=== PATIENT | female | born 1990 | race American Indian/Alaskan Native ===

== ENCOUNTER 2019-04-10 11:06 | Emergency (ER) | payer MEDICAID ==
[2019-04-10 11:33] VITALS: BP 134/66
--- NOTE | 2019-04-10 11:37 | Emergency Department Report ---
ED ENT HPI - General Chief complaint: Earache Stated complaint: LFT EAR/THROAT PAIN Time Seen by Provider: 04/10/19 11:31 Source: patient Mode of arrival: Ambulatory Limitations: No Limitations - History of Present Illness Initial comments: This is a 29-year-old female nontoxic well in appearance with no signs of distress presents to the ED with complaint of left earache and sore throat x1 week. Was seen by a provider and was diagnosed with otitis media but has not been prescribed antibiotics. Patient denies any hearing loss. Denies any mastoid tenderness. Denies any fever, chills, headache, nausea, vomiting, chest pain or SOB. Denies any other complaints. Denies any allergies. MD complaint: sore throat, ear pain -: week(s) (1) Location: L ear, throat Severity: mild Severity scale (0 -10): 8 Quality: aching Consistency: constant Improves with: none Worsens with: swallowing Associated Symptoms: pain with swallowing, sore throat. denies: fever, cough, gum swelling, toothache, tinnitus, hearing loss, discharge from ear, rhinorrhea - Related Data Previous Rx's Medication Instructions Recorded Last Taken Type Amoxicillin [Amoxicillin TAB] 875 mg PO BID #20 tablet 04/10/19 Unknown Rx Ibuprofen [Motrin] 600 mg PO Q8H PRN #20 tablet 04/10/19 Unknown Rx Allergies Allergy/AdvReac Type Severity Reaction Status Date / Time No Known Allergies Allergy Unverified 04/10/19 11:27 ED Dental HPI - General Chief complaint: Earache Stated complaint: LFT EAR/THROAT PAIN Time Seen by Provider: 04/10/19 11:31 Source: patient Mode of arrival: Ambulatory Limitations: No Limitations - Related Data Previous Rx's Medication Instructions Recorded Last Taken Type Amoxicillin [Amoxicillin TAB] 875 mg PO BID #20 tablet 04/10/19 Unknown Rx Ibuprofen [Motrin] 600 mg PO Q8H PRN #20 tablet 04/10/19 Unknown Rx Allergies Allergy/AdvReac Type Severity Reaction Status Date / Time No Known Allergies Allergy Unverified 04/10/19 11:27 ED Review of Systems ROS: Stated complaint: LFT EAR/THROAT PAIN Other details as noted in HPI Constitutional: denies: chills, fever Eyes: denies: eye pain, eye discharge, vision change ENT: ear pain, throat pain Respiratory: denies: cough, shortness of breath, wheezing Cardiovascular: denies: chest pain, palpitations Endocrine: no symptoms reported Gastrointestinal: denies: abdominal pain, nausea, diarrhea Genitourinary: denies: urgency, dysuria, discharge Musculoskeletal: denies: back pain, joint swelling, arthralgia Skin: denies: rash, lesions Neurological: denies: headache, weakness, paresthesias Psychiatric: denies: anxiety, depression Hematological/Lymphatic: denies: easy bleeding, easy bruising ED Past Medical Hx - Past Medical History Previous Medical History?: No - Surgical History Past Surgical History?: No - Medications Home Medications: Home Medications Medication Instructions Recorded Confirmed Last Taken Type Amoxicillin [Amoxicillin TAB] 875 mg PO BID #20 tablet 04/10/19 Unknown Rx Ibuprofen [Motrin] 600 mg PO Q8H PRN #20 tablet 04/10/19 Unknown Rx ED Physical Exam - General Limitations: No Limitations General appearance: alert, in no apparent distress - Head Head exam: Present: atraumatic, normocephalic - Expanded ENT Exam Expanded Ear exam: Present: normal external inspection TM/Canal exam: Erythema: Left TM, Bulging: Left TM Mouth exam: Present: normal external inspection. Absent: drooling, trismus, muffled voice Teeth exam: Present: normal inspection Throat exam: Positive: tonsillar erythema, other (uvula midline). Negative: tonsillomegaly, tonsillar exudate, R peritonsillar mass, L peritonsillar mass - Neck Neck exam: Present: normal inspection, full ROM. Absent: tenderness, meningismus, lymphadenopathy - Extremities Exam Extremities exam: Present: normal inspection, full ROM - Back Exam Back exam: Present: normal inspection, full ROM - Neurological Exam Neurological exam: Present: alert, oriented X3, normal gait - Psychiatric Psychiatric exam: Present: normal affect, normal mood - Skin Skin exam: Present: warm, dry, intact, normal color. Absent: rash ED Course - Reevaluation(s) Reevaluation #1: 04/10/19 11:34 Patient is speaking in full sentences with no signs of distress noted. ED Medical Decision Making - Medical Decision Making Patient was instructed to Follow-up with a primary care doctor in 3-5 days or if symptoms worsen and continue return to emergency room as soon as possible. At time of discharge, the patient does not seem toxic or ill in appearance. No acute signs of distress noted. Patient agrees to discharge treatment plan of care. No further questions noted by the patient. Critical care attestation.: If time is entered above; I have spent that time in minutes in the direct care of this critically ill patient, excluding procedure time. ED Disposition Clinical Impression: Otitis media, left Qualifiers: Otitis media type: unspecified Qualified Code(s): H66.92 - Otitis media, unspecified, left ear Pharyngitis Qualifiers: Pharyngitis/tonsillitis etiology: unspecified etiology Qualified Code(s): J02.9 - Acute pharyngitis, unspecified Disposition: TO HOME OR SELFCARE Is pt being admited?: No Does the pt Need Aspirin: No Condition: Stable Instructions: Otitis Media (ED), Pharyngitis (ED) Additional Instructions: Follow-up with a primary care doctor in 3-5 days or if symptoms worsen and continue return to emergency room as soon as possible. Prescriptions: Amoxicillin [Amoxicillin TAB] 875 mg PO BID #20 tablet Ibuprofen [Motrin] 600 mg PO Q8H PRN #20 tablet PRN Reason: Pain Referrals: PRIMARY CAREMD [Referring] - 3-5 Days BERHANE GALLARDO MD [Staff Physician] - 3-5 Days [facility] [place] [Outside] - 3-5 Days [facility] [Outside] - 3-5 Days Forms: Work/School Release Form(ED)
== END 2019-04-10 12:07 | disposition home or self-care (01) ==
LOC: ED 11:06
DX: H66.92 Otitis media, unspecified, left ear (principal); J02.9 Acute pharyngitis, unspecified
CPT/HCPCS: 99281

== ENCOUNTER 2019-05-13 11:02 | Emergency (ER) | payer MEDICAID ==
[2019-05-13 11:15] VITALS: BP 131/67
--- NOTE | 2019-05-13 11:17 | Event Note ---
ED Screening Note Date of service: 05/13/19 Time: 11:14 ED Screening Note: This is a 29 y.o. F. that presents to the ER with pain to right 5th toe. Patient states she stumped her foot 3 days ago and increasing pain and numbness. LMP 04/29/2019 This initial assessment/diagnostic orders/clinical plan/treatment(s) is/are subject to change based on patients health status, clinical progression and re- assessment by fellow clinical providers in the ED. Further treatment and workup at subsequent clinical providers discretion. Patient/guardian urged not to elope from the ED as their condition may be serious if not clinically assessed and managed. Initial orders include: XR right toes
--- NOTE | 2019-05-13 11:53 | XRay Report ---
RIGHT TOES 3 VIEWS INDICATION / CLINICAL INFORMATION: pain, swelling 5th toe, r/o fx. COMPARISON: None available. FINDINGS: Moderately displaced fracture of the head of the proximal phalanx of the little toe Signer Name: iFtz Vicente MD FACR Signed: 05/13/2019 11:48 AM Workstation Name: [id number]
[2019-05-13] MEDS ORDERED: IBUPROFEN PO ONE (13:04)
--- NOTE | 2019-05-13 13:05 | Emergency Department Report ---
ED Back Pain/Injury HPI - General Chief Complaint: Extremity Injury, Lower Stated Complaint: RT TOE SWELLING/VAGINAL DISCOMFORT Time Seen by Provider: 05/13/19 11:14 Source: patient Limitations: No Limitations - History of Present Illness Initial Comments: Pt is a 29 yo AA female who comes to ER with 2 issues. 1. she stubbed her toe on the wall, left foot 5th digit, now has pain 2. vag irritation after using a latex condom. No rash. No lesions. No vag discharge/bleeding. No abd pain. LMP 2 weeks ago. -: Sudden Similar Symptoms Previously: No Place: home Consistency: constant Improves With: immobilization Worsens With: movement Associated Symptoms: denies other symptoms - Related Data Previous Rx's Medication Instructions Recorded Last Taken Type Amoxicillin [Amoxicillin TAB] 875 mg PO BID #20 tablet 04/10/19 Unknown Rx Ibuprofen [Motrin] 600 mg PO Q8H PRN #20 tablet 04/10/19 Unknown Rx Allergies Allergy/AdvReac Type Severity Reaction Status Date / Time No Known Allergies Allergy Unverified 04/10/19 11:27 ED Review of Systems ROS: Stated complaint: RT TOE SWELLING/VAGINAL DISCOMFORT Other details as noted in HPI Comment: All other systems reviewed and negative ED Past Medical Hx - Past Medical History morbid obesity ED Back Pain Physical Exam - Exam General: Vital signs noted. No distress. Alert and acting appropriately. mild r 5th digit swelling rapid cap refill DP plus 2 s1 s2 no cva tenderness abd snt limited by body habitus not concerned for STI Neuro: Yes Normal Sensation, Yes Normal DTR's, Yes Normal Gait, No Motor Weakness ED Course Vital Signs 05/13/19 11:13 Temperature 98.3 F Pulse Rate 78 Respiratory 16 Rate Blood Pressure 131/67 [Left] O2 Sat by Pulse 97 Oximetry Ed Back Pain Tests - Tests Tests: Abnormal X Rays - Orthopedic Joint Reduction 5th digit Consent Obtained: verbal consent Time Out Performed: Yes Side: right Joint Reduction Location: other Analgesia: none Post-Reduction Neuro Exam: intact Post-Reduction Vascular Exam: intact Post Reduction X-Ray Obtained: No Splint Applied: Yes Patient Tolerated Procedure: well Additional Comments: sami tape and ortho shoe ED Medical Decision Making - Radiology Data Radiology results: report reviewed, image reviewed - Medical Decision Making fx of toe reduced manually, sami tape and ortho shoe/ice motrin PO for pain vag irritation and redness no concern sti- 1 partner protected no dysuria, discharge, abd pain, back pain or fever. used a latex condom for the first time ever prior to the irritation starting lmp 2 weeks ago morbidly obese 158kg pt educated on germaine care/condom use/sti etc. dc home with obgyn and ortho follow up Vital Signs 05/13/19 11:13 Temperature 98.3 F Pulse Rate 78 Respiratory 16 Rate Blood Pressure 131/67 [Left] O2 Sat by Pulse 97 Oximetry - Differential Diagnosis rx toe; uti/sti/irritation vagina Critical care attestation.: If time is entered above; I have spent that time in minutes in the direct care of this critically ill patient, excluding procedure time. ED Disposition Clinical Impression: Toe fracture, Vaginal irritation Disposition: DC-01 TO HOME OR SELFCARE Is pt being admited?: No Does the pt Need Aspirin: No Condition: Stable Instructions: Toe Fracture (ED) Additional Instructions: keep toes taped/ ortho shoe for comfort ice rest elevate foot motrin or tylenol for pain non latex condoms cotton underware no feminine deodorant or douching follow up with ortho MD for toe follow up with obgyn if vaginal irritation persists Referrals: JOSE LEDESMA MD [Staff Physician] - 3-5 Days MULUGETA HACKETT MD [Staff Physician] - 3-5 Days Forms: Work/School Release Form(ED) Time of Disposition: 13:04
== END 2019-05-13 14:00 | disposition home or self-care (01) ==
LOC: ED 11:02
DX: S92.511A Displaced fracture of proximal phalanx of right lesser toe(s), initial encounter for closed fracture (principal); W22.8XXA Striking against or struck by other objects, initial encounter; Y93.89 Activity, other specified; Y92.098 Other place in other non-institutional residence as the place of occurrence of the external cause; Y99.8 Other external cause status
CPT/HCPCS: 99283

== ENCOUNTER 2019-06-25 09:34 | Emergency (ER) | payer MEDICAID ==
[2019-06-25 09:39] VITALS: BP 148/81
[2019-06-25] MEDS ORDERED: predniSONE 20 MG TAB PO ONE (11:06)
[2019-06-25] MEDS ORDERED: KETOROLAC 60 MG/2 ML INJ IM ONE (11:06)
--- NOTE | 2019-06-25 11:53 | Emergency Department Report ---
ED Neck Pain/Injury HPI - General Chief Complaint: Back Pain/Injury Stated Complaint: NUMBNESS FROM NECK TO BACK Time Seen by Provider: 06/25/19 10:15 Mode of arrival: Ambulatory Limitations: No Limitations - History of Present Illness Initial Comments: This is a 29-year-old female nontoxic, well nourished in appearance, no acute signs of distress presents to the ED with c/o of acute on chronic upper back pain. Patient stated that the past 2 days she was moving and developed this pain. Patient states that pain radiates through to her left upper extremity. Patient denies any trauma. Denies any bladder or bowel instability. Patient denies any urinary symptoms. Denies any fever, chills, nausea, vomiting, headache, stiff neck, chest pain or shortness of breath. Patient denies any numbness or tingling. Denies any allergies. Denies significant past medical history. MD Complaint: upper back pain -: days(s) (2) Radiation: left upper extremity Severity: mild Severity scale (0 -10): 3 Quality: aching Consistency: intermittent Improves With: immobilization Worsens With: movement of extremity, movement of neck Context: lifting Associated Symptoms: none. denies: headache, fever, numbness, tingling, weakness, vertigo, difficulty walking, swollen glands, difficulty swallowing, nausea, vomiting - Related Data Previous Rx's Medication Instructions Recorded Last Taken Type Amoxicillin [Amoxicillin TAB] 875 mg PO BID #20 tablet 04/10/19 Unknown Rx Ibuprofen [Motrin] 600 mg PO Q8H PRN #20 tablet 04/10/19 Unknown Rx Cyclobenzaprine [Flexeril] 10 mg PO QHS PRN #10 tablet 06/25/19 Unknown Rx Naproxen 500 mg PO Q8H PRN #20 tablet 06/25/19 Unknown Rx Allergies Allergy/AdvReac Type Severity Reaction Status Date / Time No Known Allergies Allergy Unverified 04/10/19 11:27 ED Review of Systems ROS: Stated complaint: NUMBNESS FROM NECK TO BACK Other details as noted in HPI Constitutional: denies: chills, fever Eyes: denies: eye pain, eye discharge, vision change ENT: denies: ear pain, throat pain Respiratory: denies: cough, shortness of breath, wheezing Cardiovascular: denies: chest pain, palpitations Endocrine: no symptoms reported Gastrointestinal: denies: abdominal pain, nausea, diarrhea Genitourinary: denies: urgency, dysuria, discharge Musculoskeletal: denies: back pain, joint swelling, arthralgia Skin: denies: rash, lesions Neurological: denies: headache, weakness, paresthesias Psychiatric: denies: anxiety, depression Hematological/Lymphatic: denies: easy bleeding, easy bruising ED Past Medical Hx - Past Medical History Previous Medical History?: No Additional medical history: morbid obesity - Surgical History Past Surgical History?: No - Social History Smoking Status: Former Smoker Substance Use Type: Alcohol, Marijuana - Medications Home Medications: Home Medications Medication Instructions Recorded Confirmed Last Taken Type Amoxicillin [Amoxicillin TAB] 875 mg PO BID #20 tablet 04/10/19 Unknown Rx Ibuprofen [Motrin] 600 mg PO Q8H PRN #20 tablet 04/10/19 Unknown Rx Cyclobenzaprine [Flexeril] 10 mg PO QHS PRN #10 tablet 06/25/19 Unknown Rx Naproxen 500 mg PO Q8H PRN #20 tablet 06/25/19 Unknown Rx ED Physical Exam - General Limitations: No Limitations General appearance: alert, in no apparent distress - Head Head exam: Present: atraumatic, normocephalic - Neck Neck exam: Present: normal inspection, full ROM. Absent: tenderness, meningismus, lymphadenopathy - Extremities Exam Extremities exam: Present: normal inspection, full ROM, normal capillary refill. Absent: tenderness - Back Exam Back exam: Present: normal inspection, full ROM, paraspinal tenderness (left cervical paraspinal area). Absent: tenderness, CVA tenderness (R), CVA tenderness (L), muscle spasm, vertebral tenderness, rash noted - Expanded Back Exam Expanded Back exam: Absent: saddle anesthesia Back exam: Negative Straight Leg Raising: Left, Right - Neurological Exam Neurological exam: Present: alert, oriented X3, normal gait - Psychiatric Psychiatric exam: Present: normal affect, normal mood - Skin Skin exam: Present: warm, dry, intact, normal color. Absent: rash ED Course Vital Signs 06/25/19 09:38 Temperature 98.3 F Pulse Rate 75 Respiratory 18 Rate Blood Pressure 148/81 O2 Sat by Pulse 97 Oximetry - Reevaluation(s) Reevaluation #1: 06/25/19 11:51 Patient is speaking in full sentences with no signs of distress noted. ED Medical Decision Making - Medical Decision Making This is a 29-year-old female that presents with cervical muscle strain. Patient is stable was examined by me. There is no spinal tenderness. There is no caud a equina syndrome during examination. No bladder or bowel instability. Patient received Toradol 60 mg IM and prednisone in the ED which stated that her symptoms has resolved and subsided. Patient is discharged with muscle relaxant and Motrin. Patient was instructed not to operate any machinery while taking muscle relaxant as they cause her drowsiness. Patient was referred to Follow-up with a primary care doctor in 3-5 days or if symptoms worsen and continue return to emergency room as soon as possible. At time of discharge, the patient does not seem toxic or ill in appearance. No acute signs of distress noted. Patient agrees to discharge treatment plan of care. No further questions noted by the patient. This chart is dictated with using [employer] Critical care attestation.: If time is entered above; I have spent that time in minutes in the direct care of this critically ill patient, excluding procedure time. ED Disposition Clinical Impression: Cervical muscle strain Qualifiers: Encounter type: initial encounter Qualified Code(s): S16.1XXA - Strain of muscle, fascia and tendon at neck level, initial encounter Disposition: - TO HOME OR SELFCARE Is pt being admited?: No Does the pt Need Aspirin: No Condition: Stable Instructions: Muscle Strain (ED) Additional Instructions: Follow-up with your primary care doctor in 3-5 days or if symptoms worsen such as bladder or bowel stability, chest pain, short of breath, numbness or tingling sensation in extremities, headache, dizziness, visual changes, nausea vomiting, or abdominal pain, return back to emergency room as was possible. Take ibuprofen and Flexeril as prescribed. Do not operate heavy machinery while taking Flexeril due to sedation Prescriptions: Cyclobenzaprine [Flexeril] 10 mg PO QHS PRN #10 tablet PRN Reason: Muscle Spasm Naproxen 500 mg PO Q8H PRN #20 tablet PRN Reason: Pain , Severe (7-10) Referrals: PRIMARY CARE, [Primary Care Provider] - 3-5 Days BERHANE GALLARDO MD [Staff Physician] - 3-5 Days [facility] [Outside] - 3-5 Days [facility] [place] [Outside] - 3-5 Days Forms: Work/School Release Form(ED)
== END 2019-06-25 12:19 | disposition home or self-care (01) ==
LOC: ED 09:34
DX: S16.1XXA Strain of muscle, fascia and tendon at neck level, initial encounter (principal); E66.01 Morbid (severe) obesity due to excess calories; Z68.43 Body mass index [BMI] 50.0-59.9, adult; Z87.891 Personal history of nicotine dependence; Z79.899 Other long term (current) drug therapy; X58.XXXA Exposure to other specified factors, initial encounter; Y93.89 Activity, other specified; Y92.89 Other specified places as the place of occurrence of the external cause; Y99.8 Other external cause status
CPT/HCPCS: 96372; 99282; J1885; J7512

== ENCOUNTER 2019-07-15 13:44 | Emergency (ER) | payer MEDICAID ==
[2019-07-15 14:26] VITALS: BP 140/87
--- NOTE | 2019-07-15 14:30 | Event Note ---
ED Screening Note Date of service: 07/15/19 Time: 14:26 ED Screening Note: 29 y/o 29 y/o female comes in for right side arm and right leg intermittent numbness. + smoker and THC smoker. Not SOB now but was earlier. This initial assessment/diagnostic orders/clinical plan/treatment(s) is/are read bject to change based on patients health status, clinical progression and re- assessment by fellow clinical providers in the ED. Further treatment and workup at subsequent clinical providers discretion. Patient/guardian urged not to elope from the ED as their condition may be serious if not clinically assessed and managed. Initial orders include:
--- NOTE | 2019-07-15 17:06 | Emergency Department Report ---
ED General Adult HPI - General Chief complaint: Dyspnea/Respdistress Stated complaint: RT SIDE HAND/ARM KNEE NUMB/PAIN Time Seen by Provider: 07/15/19 14:25 Source: patient Mode of arrival: Ambulatory Limitations: No Limitations - History of Present Illness Initial comments: 29-year-old -[place] female patient without significant past medical hi story complains of right hand numbness/tingling and pain for the past 3 days. She states she is also having right knee pain, however states this pain has been ongoing for months and has not changed in its severity. She states she was told previously that his knee pain could be due to arthritis. She denies any redness, swelling, fever, IV drug use. She rates her hand pain as a 6/10 in severity and states it has a burning sensation. She denies any trauma. She states that she works at the [employer]. She also states during a flareup of the pain in her hand she developed shortness of breath that lasted about 5 minutes. She states she felt very anxious and the shortness of breath resolved on its own. She denies any cough, chest pain, hormone therapy, history of DVT/PE, dizziness, syncope, leg pain/swelling, or recent long travel. - Related Data Previous Rx's Medication Instructions Recorded Last Taken Type Amoxicillin [Amoxicillin TAB] 875 mg PO BID #20 tablet 04/10/19 Unknown Rx Ibuprofen [Motrin] 600 mg PO Q8H PRN #20 tablet 04/10/19 Unknown Rx Cyclobenzaprine [Flexeril] 10 mg PO QHS PRN #10 tablet 06/25/19 Unknown Rx Naproxen 500 mg PO Q8H PRN #20 tablet 06/25/19 Unknown Rx Ibuprofen [Motrin 800 MG tab] 800 mg PO Q8HR PRN #21 tablet 07/15/19 Unknown Rx Allergies Allergy/AdvReac Type Severity Reaction Status Date / Time No Known Allergies Allergy Unverified 04/10/19 11:27 ED Review of Systems ROS: Stated complaint: RT SIDE HAND/ARM KNEE NUMB/PAIN Other details as noted in HPI ED Past Medical Hx - Past Medical History Previous Medical History?: No Additional medical history: morbid obesity - Surgical History Past Surgical History?: No - Social History Smoking Status: Current Every Day Smoker Substance Use Type: Alcohol, Marijuana - Medications Home Medications: Home Medications Medication Instructions Recorded Confirmed Last Taken Type Amoxicillin [Amoxicillin TAB] 875 mg PO BID #20 tablet 04/10/19 Unknown Rx Ibuprofen [Motrin] 600 mg PO Q8H PRN #20 tablet 04/10/19 Unknown Rx Cyclobenzaprine [Flexeril] 10 mg PO QHS PRN #10 tablet 06/25/19 Unknown Rx Naproxen 500 mg PO Q8H PRN #20 tablet 06/25/19 Unknown Rx Ibuprofen [Motrin 800 MG tab] 800 mg PO Q8HR PRN #21 tablet 07/15/19 Unknown Rx ED Physical Exam - General Limitations: No Limitations General appearance: alert, in no apparent distress - Head Head exam: Present: atraumatic, normocephalic - Eye Eye exam: Present: normal appearance. Absent: scleral icterus - ENT ENT exam: Present: normal exam - Neck Neck exam: Present: normal inspection, full ROM - Respiratory Respiratory exam: Present: normal lung sounds bilaterally. Absent: respiratory distress, wheezes, rales, rhonchi, chest wall tenderness - Cardiovascular Cardiovascular Exam: Present: regular rate, normal rhythm. Absent: systolic murmur, diastolic murmur, rubs, gallop - GI/Abdominal GI/Abdominal exam: Present: soft, normal bowel sounds. Absent: tenderness - Extremities Exam Extremities exam: Present: normal inspection. Absent: pedal edema, joint swelling, calf tenderness - Back Exam Back exam: Present: normal inspection - Neurological Exam Neurological exam: Present: alert, oriented X3, CN II-XII intact, normal gait, other (positive Phalen's test of right wrist. Patient's numbness and tingling involves the first, second, third, and half of the fourth digit. Normal perfusion and range of motion of right hand noted). Absent: motor sensory deficit - Psychiatric Psychiatric exam: Present: normal affect, normal mood - Skin Skin exam: Present: warm, dry, intact, normal color. Absent: rash ED Course Vital Signs 07/15/19 13:49 Temperature 98.5 F Pulse Rate 88 Respiratory 18 Rate Blood Pressure 140/87 O2 Sat by Pulse 100 Oximetry ED Medical Decision Making - Medical Decision Making Patient is here with complaints of right hand numbness/tingling/burning sensation for the past 3 days. Positive Phalen's test. Neuro exam is normal otherwise. She states she had an episode of shortness of breath earlier today that lasted about 5 minutes. Perc score= 0. She denies any current shortness of breath or chest pain. Offered patient chest x-ray and labsshe declines, stating she has been in the ED to all already. Symptoms are likely due to carpal tunnel syndrome. Recommend NSAIDs and Velcro wrist splint with orthopedic follow-up as needed. Strict return precautions were discussed in detail with the patient states understanding. Critical care attestation.: If time is entered above; I have spent that time in minutes in the direct care of this critically ill patient, excluding procedure time. ED Disposition Clinical Impression: Carpal tunnel syndrome Qualifiers: Laterality: right Qualified Code(s): G56.01 - Carpal tunnel syndrome, right upper limb Disposition: TO HOME OR SELFCARE Is pt being admited?: No Condition: Stable Instructions: Carpal Tunnel Syndrome (ED) Prescriptions: Ibuprofen [Motrin 800 MG tab] 800 mg PO Q8HR PRN #21 tablet PRN Reason: Pain, Moderate (4-6)
== END 2019-07-15 17:45 | disposition home or self-care (01) ==
LOC: ED 13:44
DX: G56.01 Carpal tunnel syndrome, right upper limb (principal); R06.02 Shortness of breath; F17.200 Nicotine dependence, unspecified, uncomplicated; F12.10 Cannabis abuse, uncomplicated; F10.10 Alcohol abuse, uncomplicated; E66.01 Morbid (severe) obesity due to excess calories; Z68.43 Body mass index [BMI] 50.0-59.9, adult; Z79.899 Other long term (current) drug therapy
CPT/HCPCS: 93005; 93010

== ENCOUNTER 2019-09-29 08:51 | Emergency (ER) | payer MEDICAID ==
--- NOTE | 2019-09-29 10:10 | Ultrasound Report ---
US OB transvaginal, US OB <= 14 weeks fetus INDICATION / CLINICAL INFORMATION: vag bleeding. COMPARISON: None available. FINDINGS: Single, viable intrauterine . heart rate 104. [place]-rump length measures 6.9 mm, corresponding to a gestational age of 6 weeks 4 days. Gestational sac diameter measures 8.1 mm, corresponding to a gestational age of 5 weeks 4 days. Mean ultrasound g estational age is 6 weeks 1 day. An area of slightly decreased echogenicity around the gestational sac is consistent with subchorionic hemorrhage. Left ovary contains a 1.6 cm complex cyst, probably corpus luteal cyst. Right ovary is unremarkable. Color Doppler imaging shows normal vascular flow in both ovaries. No free fluid. IMPRESSION: 1. Single, viable 6 week 1 day intrauterine . 2. Moderate-sized subchorionic hemorrhage essentially surrounds the gestational sac. Signer Name: Dennis Byrnes MD Signed: 09/29/2019 10:05 AM Workstation Name: [id number]
--- NOTE | 2019-09-29 10:10 | Ultrasound Report ---
US OB transvaginal, US OB <= 14 weeks fetus INDICATION / CLINICAL INFORMATION: vag bleeding. COMPARISON: None available. FINDINGS: Single, viable intrauterine . heart rate 104. [place]-rump length measures 6.9 mm, corresponding to a gestational age of 6 weeks 4 days. Gestational sac diameter measures 8.1 mm, corresponding to a gestational age of 5 weeks 4 days. Mean ultrasound g estational age is 6 weeks 1 day. An area of slightly decreased echogenicity around the gestational sac is consistent with subchorionic hemorrhage. Left ovary contains a 1.6 cm complex cyst, probably corpus luteal cyst. Right ovary is unremarkable. Color Doppler imaging shows normal vascular flow in both ovaries. No free fluid. IMPRESSION: 1. Single, viable 6 week 1 day intrauterine . 2. Moderate-sized subchorionic hemorrhage essentially surrounds the gestational sac. Signer Name: Dennis Byrnes MD Signed: 09/29/2019 10:05 AM Workstation Name: [id number]
--- NOTE | 2019-09-29 11:02 | Event Note ---
ED Screening Note Date of service: 09/29/19 Time: 09:06 ED Screening Note: 29 y/o female comes in vaginal bleeding that started today. Was seen at [facility] on had a test and US. She reports that they were not able to see the sac as she may have been too early. LMP 08/12/19 No on control. This initial assessment/diagnostic orders/clinical plan/treatment(s) is/are subject to change based on patients health status, clinical progression and re- assessment by fellow clinical providers in the ED. Further treatment and workup at subsequent clinical providers discretion. Patient/guardian urged not to elope from the ED as their condition may be serious if not clinically assessed and managed. Initial orders include:
[2019-09-29 12:25] LABS: Basophils # (Auto) 0.1 K/mm3 (0.0-0.1); Basophils % (Auto) 1.1 % (0.0-1.8); Eosinophils # (Auto) 0.1 K/mm3 (0.0-0.4); Eosinophils % (Auto) 1.3 % (0.0-4.3); Hemoglobin 11.1 gm/dl (10.1-14.3); Lymphocytes # (Auto) 2.4 K/mm3 (1.2-5.4); Lymphocytes % (Auto) 45.9 % (13.4-35.0); Mean Corpuscular HGB Conc 34 % (30-34); Mean Corpuscular Volume 89 fl (79-97); Monocytes # (Auto) 0.3 K/mm3 (0.0-0.8); Monocytes % (Auto) 5.3 % (0.0-7.3); Platelet Count 280 K/mm3 (140-440); Red Blood Count 3.69 M/mm3 (3.65-5.03); Red Cell Distribution Width 16.5 % (13.2-15.2)
--- NOTE | 2019-09-29 14:30 | Emergency Department Report ---
ED HPI - General Chief complaint: Vaginal Bleeding Stated complaint: POSS TEST/CLOT/PAIN Time Seen by Provider: 09/29/19 09:05 Source: patient Mode of arrival: Ambulatory Limitations: No Limitations - History of Present Illness Initial comments: This is a 29-year-old female nontoxic, well nourished in appearance, no acute signs of distress presents to the ED with c/o of vaginal bleeding x few days. Patient states she is uncertain of how far long of she currently is. Stated has some pelvic cramping. Patient denies any abdominal pain. Patient denies any vaginal discharge or foul odor. Patient denies any nausea, vomiting, chest pain, shortness of breathe, fever, chills, headache, stiff neck, numbness, tingling. Patient denies any urinary symptoms. Patient denies any allergies or PMH. MD Complaint: vaginal bleeding, other (pelvic pain) Location: pelvis Radiation: none Severity: mild Severity scale (0 -10): 8 Quality: cramping, aching Consistency: intermittent Improves with: none Worsens with: none Associated symptoms: vaginal bleeding. denies: nausea/vomiting, vaginal discharge, abdominal pain, dysuria, headache, vision changes, malaise, dysparuenia, rash, seizure, shortness of breath, syncope, weakness Vaginal bleeding: light :: Yes Pre- care: none - Related Data Previous Rx's Medication Instructions Recorded Last Taken Type Amoxicillin [Amoxicillin TAB] 875 mg PO BID #20 tablet 04/10/19 Unknown Rx Ibuprofen [Motrin] 600 mg PO Q8H PRN #20 tablet 04/10/19 Unknown Rx Cyclobenzaprine [Flexeril] 10 mg PO QHS PRN #10 tablet 06/25/19 Unknown Rx Naproxen 500 mg PO Q8H PRN #20 tablet 06/25/19 Unknown Rx Ibuprofen [Motrin 800 MG tab] 800 mg PO Q8HR PRN #21 tablet 07/15/19 Unknown Rx Allergies Allergy/AdvReac Type Severity Reaction Status Date / Time No Known Allergies Allergy Unverified 04/10/19 11:27 ED Review of Systems ROS: Stated complaint: POSS TEST/CLOT/PAIN Other details as noted in HPI Constitutional: denies: chills, fever Eyes: denies: eye pain, eye discharge, vision change ENT: denies: ear pain, throat pain Respiratory: denies: cough, shortness of breath, wheezing Cardiovascular: denies: chest pain, palpitations Endocrine: no symptoms reported Gastrointestinal: denies: abdominal pain, nausea, diarrhea Genitourinary: abnormal menses. denies: urgency, dysuria, discharge Musculoskeletal: denies: back pain, joint swelling, arthralgia Skin: denies: rash, lesions Neurological: denies: headache, weakness, paresthesias Psychiatric: denies: anxiety, depression Hematological/Lymphatic: denies: easy bleeding, easy bruising ED Past Medical Hx - Past Medical History Previous Medical History?: No Additional medical history: morbid obesity - Surgical History Past Surgical History?: No - Social History Smoking Status: Current Every Day Smoker Substance Use Type: Alcohol, Marijuana - Medications Home Medications: Home Medications Medication Instructions Recorded Confirmed Last Taken Type Amoxicillin [Amoxicillin TAB] 875 mg PO BID #20 tablet 04/10/19 Unknown Rx Ibuprofen [Motrin] 600 mg PO Q8H PRN #20 tablet 04/10/19 Unknown Rx Cyclobenzaprine [Flexeril] 10 mg PO QHS PRN #10 tablet 06/25/19 Unknown Rx Naproxen 500 mg PO Q8H PRN #20 tablet 06/25/19 Unknown Rx Ibuprofen [Motrin 800 MG tab] 800 mg PO Q8HR PRN #21 tablet 07/15/19 Unknown Rx ED Physical Exam - General Limitations: No Limitations General appearance: alert, in no apparent distress - Head Head exam: Present: atraumatic, normocephalic - Neck Neck exam: Present: normal inspection, full ROM. Absent: tenderness, meningismus, lymphadenopathy - GI/Abdominal GI/Abdominal exam: Present: soft, normal bowel sounds. Absent: distended, tenderness, guarding, rebound, rigid, diminished bowel sounds - Extremities Exam Extremities exam: Present: normal inspection, full ROM - Back Exam Back exam: Present: normal inspection, full ROM. Absent: tenderness, CVA tender ness (R), CVA tenderness (L), muscle spasm, paraspinal tenderness, vertebral tenderness, rash noted - Neurological Exam Neurological exam: Present: alert, oriented X3, normal gait - Psychiatric Psychiatric exam: Present: normal affect, normal mood - Skin Skin exam: Present: warm, dry, intact, normal color. Absent: rash ED Course Vital Signs 09/29/19 08:55 Temperature 98.4 F Pulse Rate 82 Respiratory 18 Rate Blood Pressure 155/86 [Right] O2 Sat by Pulse 100 Oximetry - Reevaluation(s) Reevaluation #1: 09/29/19 14:32 Patient is speaking in full sentences with no signs of distress noted. ED Medical Decision Making - Lab Data Result diagrams: 09/29/19 08:56 - Medical Decision Making This is a 29-year-old female presents with threatened miscarriage. Patient is stable and was examined by me. Normal abdominal exam. US OB obtained and dictated by the radiologist. Ua obtained. Quantative serum test obtained. Patient notified of the US report with no questions noted by the patient. Patient was instructed f/u with FRONT OFFICE COORDINATOR in 2 days. RH factor positive. Labs within normal limits. Patient was given strict precautions and education on ectopic . At time of discharge, the patient does not seem toxic or ill in appearance. No acute signs of distress noted. Patient agrees to discharge treatment plan of care. No further questions noted by the patient. Critical care attestation.: If time is entered above; I have spent that time in minutes in the direct care of this critically ill patient, excluding procedure time. ED Disposition Clinical Impression: Threatened miscarriage Disposition: DC-01 TO HOME OR SELFCARE Is pt being admited?: No Does the pt Need Aspirin: No Condition: Stable Instructions: Threatened Miscarriage (ED) Additional Instructions: Follow-up with a FRONT OFFICE COORDINATOR in 2 days or if symptoms worsen and continue return to emergency room as soon as possible. Referrals: [facility] [Other] - 3-5 Days KAREN CADET MD [Staff Physician] - 3-5 Days [facility] [Provider Group] - 3-5 Days Forms: Work/School Release Form(ED)
[2019-09-29 15:01] VITALS: BP 148/65
== END 2019-09-29 15:01 | disposition home or self-care (01) ==
LOC: ED 08:51
DX: O20.0 Threatened abortion (principal); O99.311 Alcohol use complicating pregnancy, first trimester; F12.10 Cannabis abuse, uncomplicated; Z3A.01 Less than 8 weeks gestation of pregnancy; Z79.1 Long term (current) use of non-steroidal anti-inflammatories (NSAID); Z79.2 Long term (current) use of antibiotics; Z79.899 Other long term (current) drug therapy
CPT/HCPCS: 36415; 76801; 76817; 84702; 85025; 86850; 86900; 86901

== ENCOUNTER 2019-11-05 09:06 | Emergency (ER) | payer MEDICAID ==
[2019-11-05 10:03] VITALS: BP 156/95
--- NOTE | 2019-11-05 11:45 | Emergency Department Report ---
ED General Adult HPI - General Chief complaint: Anxiety Stated complaint: (R) HAND SHAKING/WEAKNESSS/HARD TO BREATHE Time Seen by Provider: 11/05/19 11:37 Source: patient Mode of arrival: Ambulatory Limitations: No Limitations - History of Present Illness Initial comments: This is a pleasant 29-year-old female who presents the emergency department with multiple complaints. First she states she has been having pain in the right wrist at the base of her thumb. She denies any injuries. She reports this pain is worse with movement. Second she reports she is having pain to the medial right ankle for the past many weeks. She reports that she works on her feet a lot and the pain is aggravated when she stands for long periods of time. Neck she reports she has been having symptoms of panic attacks. She reports she recently found out she was came to the ER because she was bleeding had ultrasound and baby looked okay however 2 days ago she started bleeding again and this is causing her to feel anxious. She reports sometimes she will get some shaking in her hands, rapid breathing and feeling like the chacon are closing in around her. She never had a history of anxiety before. States is worse when she thinks about the . Finally she reports some pain in her chest. She reports it is bilateral described as tightness. She denies any aggravating or alleviating factors but does state it gets worse when she is having these episodes of anxiety. She denies any increased pain when she breathes or shortness of breath. She denies any oral contraceptive use. She denies any family history of sudden cardiac , early cardiac disease or coronary artery disease. She denies recent coughing or fever. She is unsure if she is still . She denies any known past medical history, current medication use or known allergies to medications. She denies any associated fevers, chills, night sweats, headache, dizziness, blurry vision, nausea, vomiting, diarrhea, shortness of breath, hemoptysis, lower extremity edema or any other associated symptoms. - Related Data Previous Rx's Medication Instructions Recorded Last Taken Type Amoxicillin [Amoxicillin TAB] 875 mg PO BID #20 tablet 04/10/19 Unknown Rx Ibuprofen [Motrin] 600 mg PO Q8H PRN #20 tablet 04/10/19 Unknown Rx Cyclobenzaprine [Flexeril] 10 mg PO QHS PRN #10 tablet 06/25/19 Unknown Rx Naproxen 500 mg PO Q8H PRN #20 tablet 06/25/19 Unknown Rx Ibuprofen [Motrin 800 MG tab] 800 mg PO Q8HR PRN #21 tablet 07/15/19 Unknown Rx Ibuprofen [Motrin 800 MG tab] 800 mg PO Q8HR PRN #30 tablet 11/05/19 Unknown Rx Allergies Allergy/AdvReac Type Severity Reaction Status Date / Time No Known Allergies Allergy Unverified 04/10/19 11:27 ED Review of Systems ROS: Stated complaint: (R) HAND SHAKING/WEAKNESSS/HARD TO BREATHE Other details as noted in HPI Comment: All other systems reviewed and negative Constitutional: denies: chills, fever Eyes: denies: eye pain, eye discharge, vision change ENT: denies: ear pain, throat pain Respiratory: denies: cough, shortness of breath, wheezing Cardiovascular: as per HPI, chest pain. denies: palpitations Endocrine: no symptoms reported Gastrointestinal: denies: abdominal pain, nausea, diarrhea Genitourinary: denies: urgency, dysuria, discharge Musculoskeletal: as per HPI, arthralgia. denies: back pain, joint swelling Skin: denies: rash, lesions Neurological: denies: headache, weakness, paresthesias Psychiatric: as per HPI, anxiety. denies: depression Hematological/Lymphatic: denies: easy bleeding, easy bruising ED Past Medical Hx - Past Medical History Additional medical history: morbid obesity - Social History Smoking Status: Never Smoker Substance Use Type: Marijuana - Medications Home Medications: Home Medications Medication Instructions Recorded Confirmed Last Taken Type Amoxicillin [Amoxicillin TAB] 875 mg PO BID #20 tablet 04/10/19 Unknown Rx Ibuprofen [Motrin] 600 mg PO Q8H PRN #20 tablet 04/10/19 Unknown Rx Cyclobenzaprine [Flexeril] 10 mg PO QHS PRN #10 tablet 06/25/19 Unknown Rx Naproxen 500 mg PO Q8H PRN #20 tablet 06/25/19 Unknown Rx Ibuprofen [Motrin 800 MG tab] 800 mg PO Q8HR PRN #21 tablet 07/15/19 Unknown Rx Ibuprofen [Motrin 800 MG tab] 800 mg PO Q8HR PRN #30 tablet 11/05/19 Unknown Rx ED Physical Exam - General Limitations: No Limitations General appearance: alert, in no apparent distress - Head Head exam: Present: atraumatic, normocephalic - Eye Eye exam: Present: normal appearance, PERRL, EOMI Pupils: Present: normal accommodation - ENT ENT exam: Present: normal exam, mucous membranes moist, TM's normal bilaterally, normal external ear exam - Neck Neck exam: Present: normal inspection, full ROM. Absent: tenderness, meningismus - Respiratory Respiratory exam: Present: normal lung sounds bilaterally, chest wall tenderness (Tenderness to the bilateral chest wall). Absent: respiratory distress, wheezes, rales, rhonchi, stridor - Cardiovascular Cardiovascular Exam: Present: regular rate, normal rhythm. Absent: systolic murmur, diastolic murmur, rubs, gallop - GI/Abdominal GI/Abdominal exam: Present: soft, normal bowel sounds. Absent: distended, tenderness, guarding, rebound, rigid - Extremities Exam Extremities exam: Present: normal inspection, full ROM. Absent: tenderness, calf tenderness (Negative Homans sign bilaterally, no posterior calf tenderness) - Back Exam Back exam: Present: normal inspection, full ROM. Absent: tenderness, CVA tenderness (R), CVA tenderness (L) - Neurological Exam Neurological exam: Present: alert, oriented X3, normal gait - Psychiatric Psychiatric exam: Present: normal affect, normal mood - Skin Skin exam: Present: warm, dry, intact, normal color. Absent: rash ED Course Vital Signs 11/05/19 09:57 Temperature 98.5 F Pulse Rate 55 L Respiratory 20 Rate Blood Pressure 156/95 O2 Sat by Pulse 100 Oximetry ED Medical Decision Making - EKG Data -: EKG Interpreted by Me EKG shows normal: sinus rhythm Rate: bradycardia (58) - EKG Data When compared to previous EKG there are: previous EKG unavailable 11/05/19 12:[address] or T wave abnormalities, no STEMI, normal axis, normal intervals, no ectopy - Radiology Data Radiology results: report reviewed, image reviewed XRay Report Signed Patient: JERRY DANGELO MR# : [id number] : 1990 Acct:[id number] Age/Sex: 29 / F ADM Date: 11/05/19 Loc: ED Attending Dr: Ordering Physician: ANNALISE ACEVES Date of Service: 11/05/19 Procedure(s): XR chest 1V ap Accession Number(s): [id number] cc: ANNALISE ACEVES Fluoro Time In Minutes: CHEST 2 VIEWS INDICATION: chest pain. COMPARISON: None FINDINGS: Support devices: None. Heart: Within normal limits. Lungs/pleura: No acute air space or interstitial disease. No pneumothorax. Additional findings: None. IMPRESSION: 1. No acute findings. Signer Name: Diego Bedolla MD Signed: 11/05/2019 1:42 PM Workstation Name: [email or web address] Transcribed By: ARI Dictated By: Diego Bedolla MD Electronically Authenticated By: Diego Bedolla MD Signed Date/Time: 11/05/19 1342 - Medical Decision Making Patient presented with reproducible chest wall pain. EKG was unremarkable with no cardiac risk factors making ACS unlikely. She is PERC negative and a low risk by Wells criteria making PE unlikely. Chest x-ray was clear ruling out pneumonia or pneumothorax. There is no widening of the mediastinum and normal equal radial pulses making aortic dissection unlikely. She had no tearing or ripping pain to the back. Patient's hCG was negative making her threatened miscarriage a complete at this time. She had no symptoms of septic . Suspect the bleeding that she is having is likely a menstrual cycle. She had a positive John's test on her right wrist which I think is related to de Quervain's tenosynovitis causing her pain. As for her foot pain she had pes planus bilaterally and the pain was just above the arch I think this is likely the cause of her pain. Recommend she follow-up with orthopedics regarding these 2 issues and follow-up with her primary care doctor. She is instructed to return the emergency department if she develops any changing or worsening symptoms arise understanding the diagnosis, treatment plan and follow- up instructions and all her questions were answered. - Differential Diagnosis ACS, PE, pneumothorax, pneumonia, aortic dissection Critical care attestation.: If time is entered above; I have spent that time in minutes in the direct care of this critically ill patient, excluding procedure time. ED Disposition Clinical Impression: Nonspecific chest pain, Pes planus of both feet, De Quervain's tenosynovitis, right Disposition: DC-01 TO HOME OR SELFCARE Is pt being admited?: No Condition: Stable Instructions: Chest Pain (ED) Prescriptions: Ibuprofen [Motrin 800 MG tab] 800 mg PO Q8HR PRN #30 tablet PRN Reason: Pain , Severe (7-10) Referrals: PRIMARY CARE, [Primary Care Provider] - 3-5 Days Forms: Work/School Release Form(ED) Time of Disposition: 14:02
--- NOTE | 2019-11-05 13:46 | XRay Report ---
CHEST 2 VIEWS INDICATION: chest pain. COMPARISON: None FINDINGS: Support devices: None. Heart: Within normal limits. Lungs/pleura: No acute air space or interstitial disease. No pneumothorax. Additional findings: None. IMPRESSION: 1. No acute findings. Signer Name: Diego Bedolla MD Signed: 11/05/2019 1:42 PM Workstation Name: [id number]
== END 2019-11-05 14:50 | disposition home or self-care (01) ==
LOC: ED 09:06
DX: M21.42 Flat foot [pes planus] (acquired), left foot (principal); M21.41 Flat foot [pes planus] (acquired), right foot; M65.4 Radial styloid tenosynovitis [de Quervain]; R07.9 Chest pain, unspecified; E66.01 Morbid (severe) obesity due to excess calories; Z79.899 Other long term (current) drug therapy; Z68.42 Body mass index [BMI] 45.0-49.9, adult
CPT/HCPCS: 36415; 71045; 84702; 93005; 93010